=== PATIENT | female | born 1940 | race Caucasian/White ===

== ENCOUNTER 2017-08-17 15:13 | Inpatient (IN) ==
[2017-08-17 15:59] LABS: Basophils % 0.4 % (0.0-0.8); Eosinophils # 0.1 10*3/uL (0.0-0.87); Eosinophils % 1.5 % (0.00-10.9); Hematocrit 50.5 VOL% (35.7-47.0); Hemoglobin 17.6 GM/DL (12.0-16.0); Immature Granulocytes % 0.7 %; Immature Granulocytes Absolute 0.05 #; Lymphocytes # 1.4 10*3/uL (1.4-4.0); Lymphocytes % 19.2 % (21.3-54.2); Mean Corpuscular HGB Conc 34.9 GM/DL (32-36); Mean Corpuscular Hemoglobin 32 PG (27-34); Mean Corpuscular Volume 92.8 FL (87-102); Mean Platelet Volume 10.7 FL (9.6-12.0); Monocytes # 0.6 10*3/uL (0.11-0.8); Monocytes % 7.7 % (1.7-12.7); Neutrophils # 5.3 10*3/uL (1.4-7.4); Neutrophils % 70.5 % (38.7-73.9); Platelet Count 197 T/CUMM (130-400); Red Blood Count 5.44 MC/CUMM (3.8-5.5); Red Cell Distribution Width 12.5 % (9.3-17.3); White Blood Count 7.5 T/CUMM (4-12)
[2017-08-17] MEDS ORDERED: AMPICILLIN/SULBACTAM 3,000 MG in SODIUM CHLORIDE 0.9% 100 ML IV STA (15:59)
[2017-08-17] MEDS ORDERED: AMPICILLIN/SULBACTAM 3,000 MG VIAL ONE (16:04)
[2017-08-17 16:07] LABS: Apearance,Urine CLEAR (Clear); Bilirubin,Urine Negative (Negative); Blood, Urine Moderate mg/dL (Negative); Glucose,Urine (UA) Negative (Negative); Ketones,Urine Negative (Negative); Nitrite,Urine Negative (Negative); Protein,Urine Negative; RBC,Urine 1 /HPF (0-4); Urine Color Yellow (Yellow); Urine Specific Gravity 1.003 (1.001-1.035); Urine Urobilinogen < 2.0 EU/DL (0.2-1.0); WBC,Urine <1 /HPF (0-6)
[2017-08-17 16:23] LABS: Albumin 3.1 G/DL (3.4-5.0); Bilirubin,Total 0.9 MG/DL (0.2-1.0); Calcium 9.9 MG/DL (8.5-10.1); Osmolality,Calculated 269.1 MOS/KG (273-304); Potassium 3.8 MMOL/L (3.5-5.1); Total Protein 7.6 G/DL (6.4-8.3)
[2017-08-17] MEDS: SODIUM CHLORIDE 0.9% 1,000 ML IV SCH (20:21)
[2017-08-17] MEDS: metroNIDAZOLE INJ 500 MG in PREMIX 1 EACH IV SCH (20:23)
[2017-08-17] MEDS: LEVOFLOXACIN INJ 750 MG in PREMIX 1 EACH IV SCH (21:45)
[2017-08-17] MEDS ORDERED: KETOROLAC 30 MG/1 ML VIAL IV PRN (23:18)
[2017-08-18] MEDS: ONDANSETRON 4 MG/2 ML VIAL IV PRN ×2 (00:09→23:48)
[2017-08-18] MEDS: metroNIDAZOLE INJ 500 MG in PREMIX 1 EACH IV SCH ×4 (01:22→20:16)
[2017-08-18] MEDS ORDERED: HYDROmorphone 2 MG/1 ML VIAL IV ONE (01:29)
[2017-08-18 05:01] LABS: Basophils % 0.2 % (0.0-0.8); Eosinophils # 0.1 10*3/uL (0.0-0.87); Eosinophils % 1.4 % (0.00-10.9); Hematocrit 32.8 VOL% (35.7-47.0); Hemoglobin 11.2 GM/DL (12.0-16.0); Immature Granulocytes % 0.8 %; Immature Granulocytes Absolute 0.08 #; Lymphocytes # 1.8 10*3/uL (1.4-4.0); Lymphocytes % 17.9 % (21.3-54.2); Mean Corpuscular HGB Conc 34.1 GM/DL (32-36); Mean Corpuscular Hemoglobin 32 PG (27-34); Mean Corpuscular Volume 94.5 FL (87-102); Mean Platelet Volume 11.6 FL (9.6-12.0); Monocytes # 0.8 10*3/uL (0.11-0.8); Neutrophils % 71.7 % (38.7-73.9); Platelet Count 261 T/CUMM (130-400); Red Blood Count 3.47 MC/CUMM (3.8-5.5); Red Cell Distribution Width 12.6 % (9.3-17.3); White Blood Count 9.8 T/CUMM (4-12)
[2017-08-18 05:41] LABS: Calcium 9.4 MG/DL (8.5-10.1); Osmolality,Calculated 275.5 MOS/KG (273-304); Potassium 3.9 MMOL/L (3.5-5.1); Risk Ratio 3.97; Thyroid Stimulating Hormone 2.47 uIU/ml (0.358-3.74); VLDL CHOLESTEROL 18.2 MG/DL
[2017-08-18] MEDS: ASPIRIN EC 81 MG TABLET PO SCH (08:40)
[2017-08-18] MEDS: DOCUSATE SODIUM 100 MG CAPSULE PO SCH (08:40)
[2017-08-18] MEDS: PANTOPRAZOLE 40 MG TABLET PO SCH (08:40)
[2017-08-18] MEDS: FOLIC ACID 1 MG TABLET PO SCH (08:40)
[2017-08-18] MEDS: CYANOCOBALAMIN 500 MCG TABLET PO SCH (08:41)
[2017-08-18] MEDS: SODIUM CHLORIDE 0.9% 1,000 ML IV SCH ×2 (13:45→23:47)
[2017-08-18] MEDS: oxyCODONE/ACETAMINOPHEN 5-325 MG TABLET PO PRN ×2 (15:15→23:49)
[2017-08-18] MEDS: LEVOFLOXACIN INJ 750 MG in PREMIX 1 EACH IV SCH (20:18)
[2017-08-19] MEDS: metroNIDAZOLE INJ 500 MG in PREMIX 1 EACH IV SCH ×4 (01:27→20:14)
[2017-08-19 05:46] LABS: Basophils % 0.4 % (0.0-0.8); Eosinophils # 0.1 10*3/uL (0.0-0.87); Eosinophils % 1.6 % (0.00-10.9); Hematocrit 31.3 VOL% (35.7-47.0); Hemoglobin 10.5 GM/DL (12.0-16.0); Immature Granulocytes % 0.8 %; Immature Granulocytes Absolute 0.07 #; Lymphocytes # 1.6 10*3/uL (1.4-4.0); Mean Corpuscular HGB Conc 33.5 GM/DL (32-36); Mean Corpuscular Hemoglobin 32 PG (27-34); Mean Platelet Volume 11.3 FL (9.6-12.0); Monocytes # 0.7 10*3/uL (0.11-0.8); Monocytes % 7.7 % (1.7-12.7); Neutrophils % 70.5 % (38.7-73.9); Platelet Count 230 T/CUMM (130-400); Red Blood Count 3.26 MC/CUMM (3.8-5.5); Red Cell Distribution Width 12.7 % (9.3-17.3); White Blood Count 8.5 T/CUMM (4-12)
[2017-08-19] MEDS: oxyCODONE/ACETAMINOPHEN 5-325 MG TABLET PO PRN ×3 (05:53→16:52)
[2017-08-19] MEDS: SODIUM CHLORIDE 0.9% 1,000 ML IV SCH ×2 (05:53→19:54)
[2017-08-19 06:20] LABS: Osmolality,Calculated 275.5 MOS/KG (273-304); Potassium 4.4 MMOL/L (3.5-5.1)
[2017-08-19] MEDS: DOCUSATE SODIUM 100 MG CAPSULE PO SCH (08:53)
[2017-08-19] MEDS: ASPIRIN EC 81 MG TABLET PO SCH (08:53)
[2017-08-19] MEDS: FOLIC ACID 1 MG TABLET PO SCH (08:54)
[2017-08-19] MEDS: PANTOPRAZOLE 40 MG TABLET PO SCH (08:54)
[2017-08-19] MEDS: CYANOCOBALAMIN 500 MCG TABLET PO SCH (08:54)
[2017-08-19] MEDS: ONDANSETRON 4 MG/2 ML VIAL IV PRN (17:50)
[2017-08-19] MEDS: LEVOFLOXACIN INJ 750 MG in PREMIX 1 EACH IV SCH (22:16)
[2017-08-20] MEDS: oxyCODONE/ACETAMINOPHEN 5-325 MG TABLET PO PRN ×3 (00:15→20:55)
[2017-08-20] MEDS: ONDANSETRON 4 MG/2 ML VIAL IV PRN ×3 (00:16→17:26)
[2017-08-20] MEDS: metroNIDAZOLE INJ 500 MG in PREMIX 1 EACH IV SCH ×2 (01:29→09:19)
[2017-08-20] MEDS: SODIUM CHLORIDE 0.9% 1,000 ML IV SCH ×2 (02:05→14:25)
[2017-08-20 06:22] LABS: Basophils % 0.4 % (0.0-0.8); Eosinophils # 0.2 10*3/uL (0.0-0.87); Eosinophils % 2.8 % (0.00-10.9); Hematocrit 32.4 VOL% (35.7-47.0); Hemoglobin 10.7 GM/DL (12.0-16.0); Immature Granulocytes % 0.9 %; Immature Granulocytes Absolute 0.06 #; Lymphocytes # 1.6 10*3/uL (1.4-4.0); Lymphocytes % 23.3 % (21.3-54.2); Mean Corpuscular Hemoglobin 32 PG (27-34); Mean Corpuscular Volume 95.9 FL (87-102); Mean Platelet Volume 11.1 FL (9.6-12.0); Monocytes # 0.5 10*3/uL (0.11-0.8); Monocytes % 6.7 % (1.7-12.7); NRBC # 0.02 10*3/uL; Neutrophils # 4.5 10*3/uL (1.4-7.4); Neutrophils % 65.9 % (38.7-73.9); Platelet Count 226 T/CUMM (130-400); Red Blood Count 3.38 MC/CUMM (3.8-5.5); Red Cell Distribution Width 12.8 % (9.3-17.3); White Blood Count 6.8 T/CUMM (4-12)
[2017-08-20 06:44] LABS: Calcium 8.9 MG/DL (8.5-10.1); Magnesium 1.9 MG/DL (1.8-2.4); Osmolality,Calculated 276.4 MOS/KG (273-304); Potassium 4.1 MMOL/L (3.5-5.1)
[2017-08-20] MEDS: PANTOPRAZOLE 40 MG TABLET PO SCH (09:22)
[2017-08-20] MEDS: DOCUSATE SODIUM 100 MG CAPSULE PO SCH (09:22)
[2017-08-20] MEDS: ASPIRIN EC 81 MG TABLET PO SCH (09:22)
[2017-08-20] MEDS: FOLIC ACID 1 MG TABLET PO SCH (09:22)
[2017-08-20] MEDS: CYANOCOBALAMIN 500 MCG TABLET PO SCH (09:23)
[2017-08-20] MEDS ORDERED: MAGNESIUM HYDROXIDE SUSP 30 ML UDCUP PO ONE (13:06)
[2017-08-20] MEDS ORDERED: MAGNESIUM HYDROXIDE SUSP 30 ML UDCUP PO PRN (13:06)
[2017-08-20] MEDS: metroNIDAZOLE 500 MG TABLET PO SCH ×2 (17:26→20:48)
[2017-08-21] MEDS: metroNIDAZOLE 500 MG TABLET PO SCH ×4 (02:00→21:51)
[2017-08-21] MEDS: oxyCODONE/ACETAMINOPHEN 5-325 MG TABLET PO PRN ×2 (02:01→11:48)
[2017-08-21] MEDS: SODIUM CHLORIDE 0.9% 1,000 ML IV SCH ×2 (03:00→18:00)
[2017-08-21 03:12] LABS: Basophils % 0.4 % (0.0-0.8); Eosinophils # 0.2 10*3/uL (0.0-0.87); Eosinophils % 3.3 % (0.00-10.9); Hematocrit 30.8 VOL% (35.7-47.0); Hemoglobin 10.2 GM/DL (12.0-16.0); Immature Granulocytes % 0.7 %; Immature Granulocytes Absolute 0.05 #; Lymphocytes # 2.3 10*3/uL (1.4-4.0); Lymphocytes % 32.1 % (21.3-54.2); Mean Corpuscular HGB Conc 33.1 GM/DL (32-36); Mean Corpuscular Hemoglobin 32 PG (27-34); Mean Corpuscular Volume 95.7 FL (87-102); Mean Platelet Volume 11.3 FL (9.6-12.0); Monocytes # 0.5 10*3/uL (0.11-0.8); Monocytes % 7.5 % (1.7-12.7); Platelet Count 216 T/CUMM (130-400); Red Blood Count 3.22 MC/CUMM (3.8-5.5); Red Cell Distribution Width 12.9 % (9.3-17.3); White Blood Count 7.1 T/CUMM (4-12)
[2017-08-21 03:38] LABS: Calcium 8.8 MG/DL (8.5-10.1); Magnesium 1.9 MG/DL (1.8-2.4); Osmolality,Calculated 278.3 MOS/KG (273-304); Potassium 3.9 MMOL/L (3.5-5.1)
[2017-08-21] MEDS: DOCUSATE SODIUM 100 MG CAPSULE PO SCH (10:15)
[2017-08-21] MEDS: PANTOPRAZOLE 40 MG TABLET PO SCH (10:16)
[2017-08-21] MEDS: LEVOFLOXACIN 750 MG TABLET PO SCH (10:16)
[2017-08-21] MEDS: FOLIC ACID 1 MG TABLET PO SCH (10:16)
[2017-08-21] MEDS: ASPIRIN EC 81 MG TABLET PO SCH (10:16)
[2017-08-21] MEDS: CYANOCOBALAMIN 500 MCG TABLET PO SCH (10:17)
[2017-08-21] MEDS: ONDANSETRON 4 MG/2 ML VIAL IV PRN ×2 (13:19→17:28)
[2017-08-21] MEDS ORDERED: PROMETHAZINE 25 MG/1 ML VIAL IM ONE (19:10)
[2017-08-22] MEDS: SODIUM CHLORIDE 0.9% 1,000 ML IV SCH ×3 (04:07→19:40)
[2017-08-22] MEDS: metroNIDAZOLE 500 MG TABLET PO SCH ×4 (04:09→20:27)
[2017-08-22] MEDS: DOCUSATE SODIUM 100 MG CAPSULE PO SCH (08:52)
[2017-08-22] MEDS: LEVOFLOXACIN 750 MG TABLET PO SCH (08:52)
[2017-08-22] MEDS: PANTOPRAZOLE 40 MG TABLET PO SCH (08:53)
[2017-08-22] MEDS: CYANOCOBALAMIN 500 MCG TABLET PO SCH (08:53)
[2017-08-22] MEDS: ASPIRIN EC 81 MG TABLET PO SCH (08:53)
[2017-08-22] MEDS: FOLIC ACID 1 MG TABLET PO SCH (08:53)
[2017-08-22] MEDS: HYDROCORTISONE 25 MG SUPP RECTAL SCH ×2 (17:32→20:27)
[2017-08-23 03:53] LABS: Basophils # 0.1 10*3/uL (0.0-0.2); Basophils % 0.9 % (0.0-0.8); Eosinophils # 0.2 10*3/uL (0.0-0.87); Eosinophils % 3.6 % (0.00-10.9); Hematocrit 32.8 VOL% (35.7-47.0); Hemoglobin 10.9 GM/DL (12.0-16.0); Immature Granulocytes % 1.2 %; Immature Granulocytes Absolute 0.07 #; Lymphocytes # 1.9 10*3/uL (1.4-4.0); Lymphocytes % 32.2 % (21.3-54.2); Mean Corpuscular HGB Conc 33.2 GM/DL (32-36); Mean Corpuscular Hemoglobin 32 PG (27-34); Mean Corpuscular Volume 96.2 FL (87-102); Mean Platelet Volume 11.1 FL (9.6-12.0); Monocytes # 0.4 10*3/uL (0.11-0.8); Monocytes % 6.5 % (1.7-12.7); Neutrophils # 3.2 10*3/uL (1.4-7.4); Neutrophils % 55.6 % (38.7-73.9); Platelet Count 207 T/CUMM (130-400); Red Blood Count 3.41 MC/CUMM (3.8-5.5); Red Cell Distribution Width 13.1 % (9.3-17.3); White Blood Count 5.8 T/CUMM (4-12)
[2017-08-23] MEDS: metroNIDAZOLE 500 MG TABLET PO SCH ×2 (03:59→08:31)
[2017-08-23 05:20] LABS: Albumin 2.1 G/DL (3.4-5.0); Phosphorous 2.3 MG/DL (2.5-4.9); Potassium 4.6 MMOL/L (3.5-5.1)
[2017-08-23 06:05] LABS: Sedimentation Rate-Westergren 65 MM/HR (0-30)
[2017-08-23] MEDS: FOLIC ACID 1 MG TABLET PO SCH (08:31)
[2017-08-23] MEDS: HYDROCORTISONE 25 MG SUPP RECTAL SCH (08:31)
[2017-08-23] MEDS: CYANOCOBALAMIN 500 MCG TABLET PO SCH (08:31)
[2017-08-23] MEDS: ASPIRIN EC 81 MG TABLET PO SCH (08:31)
[2017-08-23] MEDS: LEVOFLOXACIN 750 MG TABLET PO SCH (08:31)
[2017-08-23] MEDS: DOCUSATE SODIUM 100 MG CAPSULE PO SCH (08:31)
[2017-08-23] MEDS: PANTOPRAZOLE 40 MG TABLET PO SCH (08:31)
[2017-08-23] MEDS: SODIUM CHLORIDE 0.9% 1,000 ML IV SCH (08:32)
[2017-08-23 11:41] VITALS: BP 144/71
== END 2017-08-23 14:30 | disposition home or self-care (01) | DRG 392 ==
LOC: N.ED 15:13 → SUATTDRO 16:51 → N.EDINP 16:51 → N.3E 19:09
PROVIDERS: ADMIT Internal Medicine; ATTEND Pediatrics

== ENCOUNTER 2017-12-28 15:43 | Inpatient (IN) ==
[2017-12-28] MEDS: cefTRIAXone 1,000 MG in SYRINGE 1 EACH IV SCH (18:08)
[2017-12-28] MEDS: SODIUM CHLORIDE 0.9% 1,000 ML IV SCH (18:15)
[2017-12-28] MEDS ORDERED: METHOCARBAMOL 500 MG TABLET PO PRN (18:30)
[2017-12-28] MEDS: metroNIDAZOLE INJ 500 MG in PREMIX 1 EACH IV SCH (19:33)
[2017-12-28] MEDS: GABAPENTIN 300 MG CAPSULE PO SCH ×2 (20:44→20:48)
[2017-12-28] MEDS: traMADol 50 MG TABLET PO PRN (20:50)
[2017-12-29] MEDS: metroNIDAZOLE INJ 500 MG in PREMIX 1 EACH IV SCH ×3 (04:41→20:40)
[2017-12-29] MEDS: SODIUM CHLORIDE 0.9% 1,000 ML IV SCH ×2 (04:41→17:12)
[2017-12-29] MEDS: ASPIRIN EC 81 MG TABLET PO SCH (09:44)
[2017-12-29] MEDS: NAPROXEN 250 MG TABLET PO SCH (09:44)
[2017-12-29] MEDS: hydrOXYzine HCL 10 MG TABLET PO SCH (09:44)
[2017-12-29] MEDS: DOCUSATE SODIUM 100 MG CAPSULE PO SCH (09:44)
[2017-12-29 10:07] LABS: Basophils % 0.4 % (0.0-0.8); Eosinophils # 0.2 10*3/uL (0.0-0.87); Eosinophils % 1.8 % (0.00-10.9); Hematocrit 34.9 VOL% (35.7-47.0); Hemoglobin 11.8 GM/DL (12.0-16.0); Immature Granulocytes % 0.6 %; Immature Granulocytes Absolute 0.05 #; Lymphocytes # 1.8 10*3/uL (1.4-4.0); Lymphocytes % 21.2 % (21.3-54.2); Mean Corpuscular HGB Conc 33.8 GM/DL (32-36); Mean Corpuscular Hemoglobin 32 PG (27-34); Mean Corpuscular Volume 94.3 FL (87-102); Mean Platelet Volume 10.2 FL (9.6-12.0); Monocytes # 0.7 10*3/uL (0.11-0.8); Monocytes % 8.4 % (1.7-12.7); Neutrophils # 5.7 10*3/uL (1.4-7.4); Neutrophils % 67.6 % (38.7-73.9); Platelet Count 284 T/CUMM (130-400); Red Cell Distribution Width 13.9 % (9.3-17.3); White Blood Count 8.4 T/CUMM (4-12)
[2017-12-29 10:38] LABS: Calcium 9.4 MG/DL (8.5-10.1); Osmolality,Calculated 273.5 MOS/KG (273-304); Potassium 3.7 MMOL/L (3.5-5.1)
[2017-12-29] MEDS: traMADol 50 MG TABLET PO PRN (12:31)
[2017-12-29] MEDS: cefTRIAXone 1,000 MG in SYRINGE 1 EACH IV SCH (17:14)
[2017-12-29] MEDS: GABAPENTIN 300 MG CAPSULE PO SCH (20:44)
[2017-12-29] MEDS: ONDANSETRON 4 MG TABLET PO PRN (20:56)
[2017-12-30] MEDS: SODIUM CHLORIDE 0.9% 1,000 ML IV SCH ×3 (04:36→16:50)
[2017-12-30] MEDS: metroNIDAZOLE INJ 500 MG in PREMIX 1 EACH IV SCH ×3 (04:36→20:35)
[2017-12-30] MEDS: ASPIRIN EC 81 MG TABLET PO SCH (10:07)
[2017-12-30] MEDS: DOCUSATE SODIUM 100 MG CAPSULE PO SCH (10:08)
[2017-12-30] MEDS: traMADol 50 MG TABLET PO PRN (15:20)
[2017-12-30] MEDS: ONDANSETRON 4 MG TABLET PO PRN (17:45)
[2017-12-30] MEDS: cefTRIAXone 1,000 MG in SYRINGE 1 EACH IV SCH (17:46)
[2017-12-30] MEDS: GABAPENTIN 300 MG CAPSULE PO SCH (20:33)
[2017-12-31] MEDS: SODIUM CHLORIDE 0.9% 1,000 ML IV SCH ×2 (02:51→14:50)
[2017-12-31] MEDS: metroNIDAZOLE INJ 500 MG in PREMIX 1 EACH IV SCH ×2 (04:36→12:44)
[2017-12-31 05:48] LABS: Basophils # 0.1 10*3/uL (0.0-0.2); Basophils % 0.9 % (0.0-0.8); Eosinophils # 0.2 10*3/uL (0.0-0.87); Eosinophils % 3.2 % (0.00-10.9); Hematocrit 31.4 VOL% (35.7-47.0); Hemoglobin 10.5 GM/DL (12.0-16.0); Immature Granulocytes % 0.4 %; Immature Granulocytes Absolute 0.03 #; Lymphocytes # 1.6 10*3/uL (1.4-4.0); Lymphocytes % 23.2 % (21.3-54.2); Mean Corpuscular HGB Conc 33.4 GM/DL (32-36); Mean Corpuscular Hemoglobin 31 PG (27-34); Mean Corpuscular Volume 93.5 FL (87-102); Monocytes # 0.5 10*3/uL (0.11-0.8); Monocytes % 7.5 % (1.7-12.7); Neutrophils # 4.5 10*3/uL (1.4-7.4); Neutrophils % 64.8 % (38.7-73.9); Platelet Count 269 T/CUMM (130-400); Red Blood Count 3.36 MC/CUMM (3.8-5.5); Red Cell Distribution Width 13.7 % (9.3-17.3)
[2017-12-31 06:46] LABS: Calcium 9.1 MG/DL (8.5-10.1); Osmolality,Calculated 274.4 MOS/KG (273-304); Potassium 3.6 MMOL/L (3.5-5.1)
[2017-12-31] MEDS: ONDANSETRON 4 MG TABLET PO PRN ×3 (07:28→20:00)
[2017-12-31] MEDS: hydrOXYzine HCL 10 MG TABLET PO SCH (08:49)
[2017-12-31] MEDS: ASPIRIN EC 81 MG TABLET PO SCH (08:49)
[2017-12-31] MEDS: NAPROXEN 250 MG TABLET PO SCH (08:50)
[2017-12-31] MEDS: DOCUSATE SODIUM 100 MG CAPSULE PO SCH (08:50)
[2017-12-31] MEDS: POLYETHYLENE GLYCOL POWDER 17 GM PACK PO SCH (12:45)
[2017-12-31] MEDS: PIPERACILLIN/TAZOBACTAM 3,375 MG in SODIUM CHLORIDE 0.9% 100 ML IV SCH (17:32)
[2017-12-31] MEDS: GABAPENTIN 300 MG CAPSULE PO SCH (21:30)
[2018-01-01] MEDS: PIPERACILLIN/TAZOBACTAM 3,375 MG in SODIUM CHLORIDE 0.9% 100 ML IV SCH ×3 (00:48→17:34)
[2018-01-01] MEDS: SODIUM CHLORIDE 0.9% 1,000 ML IV SCH ×2 (02:43→10:44)
[2018-01-01] MEDS: ONDANSETRON 4 MG TABLET PO PRN ×2 (04:49→10:43)
[2018-01-01] MEDS: DOCUSATE SODIUM 100 MG CAPSULE PO SCH (08:53)
[2018-01-01] MEDS: ASPIRIN EC 81 MG TABLET PO SCH (08:53)
[2018-01-01] MEDS: POLYETHYLENE GLYCOL POWDER 17 GM PACK PO SCH (08:55)
[2018-01-01] MEDS: traMADol 50 MG TABLET PO PRN (13:08)
[2018-01-01] MEDS: PROMETHAZINE 25 MG TABLET PO PRN ×2 (13:29→19:06)
[2018-01-01] MEDS: GABAPENTIN 300 MG CAPSULE PO SCH (21:44)
[2018-01-02] MEDS: SODIUM CHLORIDE 0.9% 1,000 ML IV SCH ×3 (00:31→07:28)
[2018-01-02] MEDS: PIPERACILLIN/TAZOBACTAM 3,375 MG in SODIUM CHLORIDE 0.9% 100 ML IV SCH ×3 (01:45→18:57)
[2018-01-02] MEDS: POLYETHYLENE GLYCOL POWDER 17 GM PACK PO SCH (08:46)
[2018-01-02] MEDS: ASPIRIN EC 81 MG TABLET PO SCH (09:16)
[2018-01-02] MEDS: DOCUSATE SODIUM 100 MG CAPSULE PO SCH (09:16)
[2018-01-02] MEDS: traMADol 50 MG TABLET PO PRN (09:16)
[2018-01-02] MEDS: PROMETHAZINE 25 MG TABLET PO PRN ×3 (09:40→18:56)
[2018-01-02] MEDS: GABAPENTIN 300 MG CAPSULE PO SCH (21:22)
[2018-01-03] MEDS: SODIUM CHLORIDE 0.9% 1,000 ML IV SCH ×2 (01:42→06:07)
[2018-01-03] MEDS: PIPERACILLIN/TAZOBACTAM 3,375 MG in SODIUM CHLORIDE 0.9% 100 ML IV SCH ×3 (01:47→17:44)
[2018-01-03] MEDS: traMADol 50 MG TABLET PO PRN ×4 (01:47→23:23)
[2018-01-03 05:49] LABS: Basophils % 0.3 % (0.0-0.8); Eosinophils # 0.2 10*3/uL (0.0-0.87); Eosinophils % 1.7 % (0.00-10.9); Hematocrit 32.3 VOL% (35.7-47.0); Hemoglobin 11.1 GM/DL (12.0-16.0); Immature Granulocytes % 0.5 %; Immature Granulocytes Absolute 0.05 #; Lymphocytes # 1.8 10*3/uL (1.4-4.0); Lymphocytes % 17.6 % (21.3-54.2); Mean Corpuscular HGB Conc 34.4 GM/DL (32-36); Mean Corpuscular Hemoglobin 32 PG (27-34); Mean Corpuscular Volume 91.8 FL (87-102); Mean Platelet Volume 10.9 FL (9.6-12.0); Monocytes # 0.9 10*3/uL (0.11-0.8); Monocytes % 8.9 % (1.7-12.7); Neutrophils # 7.2 10*3/uL (1.4-7.4); Platelet Count 262 T/CUMM (130-400); Red Blood Count 3.52 MC/CUMM (3.8-5.5); Red Cell Distribution Width 14.1 % (9.3-17.3); White Blood Count 10.1 T/CUMM (4-12)
[2018-01-03 06:20] LABS: Alanine Aminotransferase < 6 U/L (13-56); Albumin 2.2 G/DL (3.4-5.0); Alkaline Phosphatase 61 U/L (45-117); Aspartate Amino Transferase 9 U/L (0-37); Blood Urea Nitrogen 3 MG/DL (7-18); Calcium 8.9 MG/DL (8.5-10.1); Glucose 77 MG/DL (74-106); Osmolality,Calculated 276.3 MOS/KG (273-304); Potassium 3.1 MMOL/L (3.5-5.1); Sodium 141 MMOL/L (136-145); Total Protein 5.1 G/DL (6.4-8.3)
[2018-01-03] MEDS: DOCUSATE SODIUM 100 MG CAPSULE PO SCH (08:09)
[2018-01-03] MEDS: hydrOXYzine HCL 10 MG TABLET PO SCH ×2 (08:09→08:15)
[2018-01-03] MEDS: ASPIRIN EC 81 MG TABLET PO SCH (08:09)
[2018-01-03] MEDS: PROMETHAZINE 25 MG TABLET PO PRN ×3 (08:09→21:59)
[2018-01-03] MEDS: NAPROXEN 250 MG TABLET PO SCH ×2 (08:10→08:14)
[2018-01-03] MEDS: POLYETHYLENE GLYCOL POWDER 17 GM PACK PO SCH (09:39)
[2018-01-03] MEDS: GABAPENTIN 300 MG CAPSULE PO SCH (21:55)
[2018-01-04] MEDS: SODIUM CHLORIDE 0.9% 1,000 ML IV SCH ×4 (01:12→23:13)
[2018-01-04] MEDS: PIPERACILLIN/TAZOBACTAM 3,375 MG in SODIUM CHLORIDE 0.9% 100 ML IV SCH ×3 (01:12→19:16)
[2018-01-04] MEDS: traMADol 50 MG TABLET PO PRN (04:54)
[2018-01-04] MEDS: PROMETHAZINE 25 MG TABLET PO PRN (05:53)
[2018-01-04] MEDS ORDERED: ERTAPENEM 1,000 MG in SODIUM CHLORIDE 0.9% 100 ML IV ONE (06:00)
[2018-01-04 06:09] LABS: Basophils % 0.3 % (0.0-0.8); Eosinophils # 0.2 10*3/uL (0.0-0.87); Eosinophils % 1.7 % (0.00-10.9); Hematocrit 39.8 VOL% (35.7-47.0); Hemoglobin 13.6 GM/DL (12.0-16.0); Immature Granulocytes % 0.4 %; Immature Granulocytes Absolute 0.06 #; Lymphocytes # 3.3 10*3/uL (1.4-4.0); Lymphocytes % 24.5 % (21.3-54.2); Mean Corpuscular HGB Conc 34.2 GM/DL (32-36); Mean Corpuscular Hemoglobin 31 PG (27-34); Mean Corpuscular Volume 91.3 FL (87-102); Monocytes % 7.6 % (1.7-12.7); Neutrophils # 8.8 10*3/uL (1.4-7.4); Neutrophils % 65.5 % (38.7-73.9); Platelet Count 328 T/CUMM (130-400); Red Blood Count 4.36 MC/CUMM (3.8-5.5); Red Cell Distribution Width 14.2 % (9.3-17.3); White Blood Count 13.5 T/CUMM (4-12)
[2018-01-04 06:45] LABS: Osmolality,Calculated 272.5 MOS/KG (273-304); Potassium 3.1 MMOL/L (3.5-5.1)
[2018-01-04] MEDS: POTASSIUM CHLORIDE RIDER 10 MEQ in PREMIX 1 EACH IV PRN ×2 (07:11→09:20)
[2018-01-04] MEDS ORDERED: ALVIMOPAN 12 MG CAPSULE ONE (08:58)
[2018-01-04] MEDS: ASPIRIN EC 81 MG TABLET PO SCH (09:02)
[2018-01-04] MEDS: DOCUSATE SODIUM 100 MG CAPSULE PO SCH (09:03)
[2018-01-04] MEDS: POLYETHYLENE GLYCOL POWDER 17 GM PACK PO SCH (09:03)
[2018-01-04] MEDS: ALVIMOPAN 12 MG CAPSULE PO SCH ×3 (09:03→21:06)
[2018-01-04] MEDS ORDERED: fentaNYL 100 MCG/2 ML VIAL ONE (15:09)
[2018-01-04] MEDS ORDERED: SEVOFLURANE 1 UNIT/15 MINUTE INH ONE (15:09)
[2018-01-04] MEDS ORDERED: HYDROmorphone 2 MG/1 ML VIAL ONE (15:11)
[2018-01-04] MEDS ORDERED: PROPOFOL 200 MG/20 ML VIAL IV ONE (15:11)
[2018-01-04] MEDS ORDERED: ALBUMIN 5% 12.5 GM/250 ML VIAL IV ONE (15:11)
[2018-01-04] MEDS ORDERED: DEXAMETHASONE 10 MG/1 ML VIAL ONE (15:12)
[2018-01-04] MEDS ORDERED: PHENYLEPHRINE 10 MG/1 ML VIAL IV ONE (15:12)
[2018-01-04] MEDS ORDERED: PHENYLEPHRINE 1 MG/10 ML SYRINGE IV ONE (15:12)
[2018-01-04] MEDS ORDERED: NEOSTIGMINE 10 MG/10 ML VIAL ONE (15:12)
[2018-01-04] MEDS ORDERED: GLYCOPYRROLATE 0.4 MG/2 ML VIAL ONE (15:12)
[2018-01-04] MEDS ORDERED: LACTATED RINGERS 1,000 ML IV ONE (15:12)
[2018-01-04] MEDS ORDERED: ONDANSETRON 4 MG/2 ML VIAL ONE ×2 (15:13→15:49)
[2018-01-04] MEDS ORDERED: ONDANSETRON 4 MG/2 ML VIAL IV PRN (15:48)
[2018-01-04] MEDS ORDERED: MORPHINE 10 MG/1 ML VIAL ONE (15:53)
[2018-01-04] MEDS: MORPHINE 10 MG/1 ML VIAL IV PRN ×3 (15:55→16:07)
[2018-01-04] MEDS ORDERED: MORPHINE 2 MG/1 ML SYRINGE IV PRN (16:57)
[2018-01-04] MEDS ORDERED: oxyCODONE/ACETAMINOPHEN 5-325 MG TABLET PO PRN (17:10)
[2018-01-04 18:17] LABS: Basophils % 0.1 % (0.0-0.8); Hematocrit 32.9 VOL% (35.7-47.0); Hemoglobin 10.6 GM/DL (12.0-16.0); Immature Granulocytes % 0.2 %; Immature Granulocytes Absolute 0.02 #; Lymphocytes # 0.7 10*3/uL (1.4-4.0); Lymphocytes % 7.3 % (21.3-54.2); Mean Corpuscular HGB Conc 32.2 GM/DL (32-36); Mean Corpuscular Hemoglobin 31 PG (27-34); Mean Corpuscular Volume 97.1 FL (87-102); Mean Platelet Volume 11.2 FL (9.6-12.0); Monocytes # 0.9 10*3/uL (0.11-0.8); Monocytes % 8.9 % (1.7-12.7); Neutrophils # 8.5 10*3/uL (1.4-7.4); Neutrophils % 83.5 % (38.7-73.9); Platelet Count 259 T/CUMM (130-400); Red Blood Count 3.39 MC/CUMM (3.8-5.5); Red Cell Distribution Width 14.5 % (9.3-17.3); White Blood Count 10.1 T/CUMM (4-12)
[2018-01-04] MEDS: LACTATED RINGERS 1,000 ML IV SCH (18:34)
[2018-01-04 18:36] LABS: Calcium 9.4 MG/DL (8.5-10.1); Osmolality,Calculated 272.7 MOS/KG (273-304)
[2018-01-04] MEDS: oxyCODONE/ACETAMINOPHEN 5-325 MG TABLET PO PRN (21:05)
[2018-01-04] MEDS: GABAPENTIN 300 MG CAPSULE PO SCH (21:06)
[2018-01-04] MEDS: VERAPAMIL HCL 100 MG PO SCH (21:07)
[2018-01-05] MEDS: PIPERACILLIN/TAZOBACTAM 3,375 MG in SODIUM CHLORIDE 0.9% 100 ML IV SCH ×3 (00:35→17:04)
[2018-01-05] MEDS: LACTATED RINGERS 1,000 ML IV SCH ×3 (00:35→23:05)
[2018-01-05 04:53] LABS: Basophils % 0.1 % (0.0-0.8); Hematocrit 26.7 VOL% (35.7-47.0); Hemoglobin 8.6 GM/DL (12.0-16.0); Immature Granulocytes % 0.2 %; Immature Granulocytes Absolute 0.02 #; Lymphocytes # 1.1 10*3/uL (1.4-4.0); Lymphocytes % 12.4 % (21.3-54.2); Mean Corpuscular HGB Conc 32.2 GM/DL (32-36); Mean Corpuscular Hemoglobin 31 PG (27-34); Mean Corpuscular Volume 95.7 FL (87-102); Mean Platelet Volume 11.4 FL (9.6-12.0); Monocytes # 0.7 10*3/uL (0.11-0.8); Monocytes % 8.2 % (1.7-12.7); Neutrophils % 79.1 % (38.7-73.9); Platelet Count 225 T/CUMM (130-400); Red Blood Count 2.79 MC/CUMM (3.8-5.5); Red Cell Distribution Width 14.5 % (9.3-17.3); White Blood Count 8.8 T/CUMM (4-12)
[2018-01-05 05:25] LABS: Band Neutrophils 6 % (0-10); Eosinophils 1 % (0-10); Giant Platelets Few; Hypochromasia 1+; Lymphocytes 11 % (20-55); Ovalocytes Slight; Platelet Estimate Adequate; Segmented Neutrophils 77 % (50-85); Total Cells Counted 100
[2018-01-05 05:26] LABS: Calcium 9.1 MG/DL (8.5-10.1); Osmolality,Calculated 279.3 MOS/KG (273-304); Potassium 3.7 MMOL/L (3.5-5.1)
[2018-01-05] MEDS ORDERED: MAGNESIUM SULF RIDER 2 GM in PREMIX 1 EACH IV PRN (06:43)
[2018-01-05] MEDS ORDERED: MAGNESIUM SULF RIDER 4 GM in PREMIX 1 EACH IV PRN (06:43)
[2018-01-05] MEDS: SODIUM CHLORIDE 0.9% 1,000 ML IV SCH (06:44)
[2018-01-05] MEDS ORDERED: ALBUMIN 5% 25 GM in PREMIX 1 EACH IV ONE (07:47)
[2018-01-05] MEDS: DOCUSATE SODIUM 100 MG CAPSULE PO SCH (09:28)
[2018-01-05] MEDS: ALVIMOPAN 12 MG CAPSULE PO SCH ×2 (09:28→21:19)
[2018-01-05] MEDS: hydrOXYzine HCL 10 MG TABLET PO SCH (09:28)
[2018-01-05] MEDS: ASPIRIN EC 81 MG TABLET PO SCH (09:28)
[2018-01-05] MEDS: NAPROXEN 250 MG TABLET PO SCH (09:29)
[2018-01-05 12:28] LABS: Hemoglobin 8.9 GM/DL (12.0-16.0)
[2018-01-05] MEDS: oxyCODONE/ACETAMINOPHEN 5-325 MG TABLET PO PRN ×2 (13:10→21:15)
[2018-01-05] MEDS ORDERED: LACTATED RINGERS 1,000 ML IV ONE (16:13)
[2018-01-05] MEDS: GABAPENTIN 300 MG CAPSULE PO SCH (21:19)
[2018-01-05] MEDS: VERAPAMIL HCL 100 MG PO SCH (21:19)
[2018-01-06] MEDS: PIPERACILLIN/TAZOBACTAM 3,375 MG in SODIUM CHLORIDE 0.9% 100 ML IV SCH (00:46)
[2018-01-06] MEDS: oxyCODONE/ACETAMINOPHEN 5-325 MG TABLET PO PRN ×2 (03:40→15:43)
[2018-01-06 05:14] LABS: Basophils % 0.2 % (0.0-0.8); Eosinophils # 0.1 10*3/uL (0.0-0.87); Eosinophils % 1.1 % (0.00-10.9); Hematocrit 25.5 VOL% (35.7-47.0); Hemoglobin 8.5 GM/DL (12.0-16.0); Immature Granulocytes % 0.9 %; Lymphocytes # 0.7 10*3/uL (1.4-4.0); Lymphocytes % 6.6 % (21.3-54.2); Mean Corpuscular HGB Conc 33.3 GM/DL (32-36); Mean Corpuscular Hemoglobin 31 PG (27-34); Mean Corpuscular Volume 94.1 FL (87-102); Mean Platelet Volume 11.8 FL (9.6-12.0); Monocytes # 0.8 10*3/uL (0.11-0.8); Monocytes % 7.5 % (1.7-12.7); Neutrophils # 9.1 10*3/uL (1.4-7.4); Neutrophils % 83.7 % (38.7-73.9); Platelet Count 206 T/CUMM (130-400); Red Blood Count 2.71 MC/CUMM (3.8-5.5); Red Cell Distribution Width 14.8 % (9.3-17.3); White Blood Count 10.8 T/CUMM (4-12)
[2018-01-06 05:46] LABS: Calcium 8.8 MG/DL (8.5-10.1); Osmolality,Calculated 275.4 MOS/KG (273-304); Potassium 3.4 MMOL/L (3.5-5.1)
[2018-01-06] MEDS: PROMETHAZINE 25 MG TABLET PO PRN (07:19)
[2018-01-06] MEDS ORDERED: DEXTROSE 50% 25 GM/50 ML VIAL IV PRN (09:04)
[2018-01-06] MEDS ORDERED: GLUCAGON 1 MG VIAL IM PRN (09:04)
[2018-01-06] MEDS: KETOROLAC 15 MG/1 ML VIAL IV SCH ×3 (09:43→21:22)
[2018-01-06] MEDS: ALVIMOPAN 12 MG CAPSULE PO SCH ×2 (09:43→21:21)
[2018-01-06] MEDS: DOCUSATE SODIUM 100 MG CAPSULE PO SCH (09:43)
[2018-01-06] MEDS: ASPIRIN EC 81 MG TABLET PO SCH (09:43)
[2018-01-06] MEDS: ENOXAPARIN 40 MG/0.4 ML SYRINGE SUBCUT SCH (09:46)
[2018-01-06] MEDS: POTASSIUM CHLORIDE RIDER 10 MEQ in PREMIX 1 EACH IV PRN ×3 (11:01→15:56)
[2018-01-06] MEDS: INSULIN REGULAR 100 UNIT/ML SUBCUT SCH ×2 (14:23→18:49)
[2018-01-06] MEDS: ONDANSETRON 4 MG TABLET PO PRN (15:42)
[2018-01-06] MEDS: FAT EMULSION 20% 250 ML IV SCH (17:57)
[2018-01-06] MEDS: MULTIVITAMIN INJ 10 ML, TRACE ELEMENTS (5) 1 ML in AMINO ACIDS/DEXT/LYTES 4.25-5% 2,000 ML IV SCH (17:58)
[2018-01-06] MEDS: LACTATED RINGERS 1,000 ML IV SCH (18:48)
[2018-01-06] MEDS: CEFEPIME 2,000 MG in SYRINGE 1 EACH IV SCH (19:23)
[2018-01-06] MEDS: GABAPENTIN 300 MG CAPSULE PO SCH (21:29)
[2018-01-06] MEDS: VERAPAMIL HCL 100 MG PO SCH (21:29)
[2018-01-07] MEDS: INSULIN REGULAR 100 UNIT/ML SUBCUT SCH ×4 (00:08→18:08)
[2018-01-07] MEDS: LACTATED RINGERS 1,000 ML IV SCH ×3 (02:41→17:20)
[2018-01-07] MEDS: CEFEPIME 2,000 MG in SYRINGE 1 EACH IV SCH ×3 (02:41→18:45)
[2018-01-07] MEDS: KETOROLAC 15 MG/1 ML VIAL IV SCH ×4 (03:44→21:25)
[2018-01-07 05:05] LABS: Basophils % 0.1 % (0.0-0.8); Eosinophils # 0.2 10*3/uL (0.0-0.87); Eosinophils % 1.6 % (0.00-10.9); Hematocrit 21.7 VOL% (35.7-47.0); Hemoglobin 7.3 GM/DL (12.0-16.0); Lymphocytes # 0.8 10*3/uL (1.4-4.0); Mean Corpuscular HGB Conc 33.6 GM/DL (32-36); Mean Corpuscular Hemoglobin 31 PG (27-34); Mean Corpuscular Volume 93.1 FL (87-102); Monocytes # 0.5 10*3/uL (0.11-0.8); Monocytes % 5.5 % (1.7-12.7); Neutrophils # 8.2 10*3/uL (1.4-7.4); Neutrophils % 83.8 % (38.7-73.9); Platelet Count 209 T/CUMM (130-400); Red Blood Count 2.33 MC/CUMM (3.8-5.5); Red Cell Distribution Width 14.8 % (9.3-17.3); White Blood Count 9.8 T/CUMM (4-12)
[2018-01-07 05:50] LABS: Calcium 8.7 MG/DL (8.5-10.1); Osmolality,Calculated 280.4 MOS/KG (273-304); Potassium 3.5 MMOL/L (3.5-5.1); Prealbumin 3.6 MG/DL (20-40)
[2018-01-07 06:13] LABS: Band Neutrophils 1 % (0-10); Lymphocytes 15 % (20-55); Macrocytosis 1+; Platelet Estimate Normal; Segmented Neutrophils 80 % (50-85); Total Cells Counted 100
[2018-01-07] MEDS: oxyCODONE/ACETAMINOPHEN 5-325 MG TABLET PO PRN ×2 (07:38→19:05)
[2018-01-07 09:18] LABS: Apearance,Urine CLEAR (Clear); Bilirubin,Urine Negative (Negative); Blood, Urine Negative (Negative); Glucose,Urine (UA) Negative (Negative); Ketones,Urine Negative (Negative); Nitrite,Urine Negative (Negative); Protein,Urine Negative; RBC,Urine <1 /HPF (0-4); Squamous Epithelial Cell,Urine Occasional /HPF (0-10); Urine Color Yellow (Yellow); Urine Specific Gravity 1.009 (1.001-1.035); Urine Urobilinogen < 2.0 EU/DL (0.2-1.0); WBC,Urine 2 /HPF (0-6)
[2018-01-07] MEDS: hydrOXYzine HCL 10 MG TABLET PO SCH (10:02)
[2018-01-07] MEDS: ASPIRIN EC 81 MG TABLET PO SCH (10:05)
[2018-01-07] MEDS: ALVIMOPAN 12 MG CAPSULE PO SCH ×2 (10:05→21:24)
[2018-01-07] MEDS: ENOXAPARIN 40 MG/0.4 ML SYRINGE SUBCUT SCH (10:06)
[2018-01-07] MEDS: DOCUSATE SODIUM 100 MG CAPSULE PO SCH (10:07)
[2018-01-07 12:45] LABS: Hemoglobin 7.7 GM/DL (12.0-16.0)
[2018-01-07] MEDS: FAT EMULSION 20% 250 ML IV SCH (14:58)
[2018-01-07] MEDS: MULTIVITAMIN INJ 10 ML, TRACE ELEMENTS (5) 1 ML in AMINO ACIDS/DEXT/LYTES 4.25-5% 2,000 ML IV SCH (17:20)
[2018-01-07] MEDS: GABAPENTIN 300 MG CAPSULE PO SCH (21:25)
[2018-01-07] MEDS: VERAPAMIL HCL 100 MG PO SCH (21:25)
[2018-01-08] MEDS: oxyCODONE/ACETAMINOPHEN 5-325 MG TABLET PO PRN (00:31)
[2018-01-08] MEDS: INSULIN REGULAR 100 UNIT/ML SUBCUT SCH ×4 (01:20→18:34)
[2018-01-08] MEDS: CEFEPIME 2,000 MG in SYRINGE 1 EACH IV SCH ×3 (02:18→17:31)
[2018-01-08] MEDS: LACTATED RINGERS 1,000 ML IV SCH ×4 (03:28→18:34)
[2018-01-08] MEDS: KETOROLAC 15 MG/1 ML VIAL IV SCH ×4 (03:29→20:30)
[2018-01-08 05:13] LABS: Basophils % 0.2 % (0.0-0.8); Eosinophils # 0.4 10*3/uL (0.0-0.87); Eosinophils % 4.8 % (0.00-10.9); Hematocrit 22.8 VOL% (35.7-47.0); Hemoglobin 7.5 GM/DL (12.0-16.0); Immature Granulocytes Absolute 0.17 #; Lymphocytes # 1.1 10*3/uL (1.4-4.0); Lymphocytes % 12.5 % (21.3-54.2); Mean Corpuscular HGB Conc 32.9 GM/DL (32-36); Mean Corpuscular Hemoglobin 31 PG (27-34); Mean Corpuscular Volume 93.8 FL (87-102); Monocytes # 0.7 10*3/uL (0.11-0.8); Monocytes % 8.2 % (1.7-12.7); Neutrophils # 6.3 10*3/uL (1.4-7.4); Neutrophils % 72.3 % (38.7-73.9); Platelet Count 235 T/CUMM (130-400); Red Blood Count 2.43 MC/CUMM (3.8-5.5); Red Cell Distribution Width 14.8 % (9.3-17.3); White Blood Count 8.7 T/CUMM (4-12)
[2018-01-08 05:40] LABS: Calcium 8.4 MG/DL (8.5-10.1); Osmolality,Calculated 279.5 MOS/KG (273-304); Potassium 3.7 MMOL/L (3.5-5.1); Prealbumin 3.7 MG/DL (20-40)
[2018-01-08 06:50] LABS: Hypochromasia Slight
[2018-01-08] MEDS: ALVIMOPAN 12 MG CAPSULE PO SCH ×2 (09:46→20:30)
[2018-01-08] MEDS: DOCUSATE SODIUM 100 MG CAPSULE PO SCH (09:46)
[2018-01-08] MEDS: ASPIRIN EC 81 MG TABLET PO SCH (09:46)
[2018-01-08] MEDS: ENOXAPARIN 40 MG/0.4 ML SYRINGE SUBCUT SCH ×2 (09:48→10:17)
[2018-01-08] MEDS ORDERED: SODIUM CHLORIDE 0.9% 1,000 ML IV PRN (12:59)
[2018-01-08] MEDS ORDERED: FUROSEMIDE 20 MG/2 ML VIAL IV PRN ×2 (12:59→19:55)
[2018-01-08] MEDS: FAT EMULSION 20% 250 ML IV SCH (15:25)
[2018-01-08] MEDS: MULTIVITAMIN INJ 10 ML, TRACE ELEMENTS (5) 1 ML in AMINO ACIDS/DEXT/LYTES 4.25-5% 2,000 ML IV SCH (16:44)
[2018-01-08] MEDS: VERAPAMIL HCL 100 MG PO SCH (20:27)
[2018-01-08] MEDS: GABAPENTIN 300 MG CAPSULE PO SCH (20:28)
[2018-01-08] MEDS: PANTOPRAZOLE 40 MG VIAL IV SCH (20:29)
[2018-01-09] MEDS: CEFEPIME 2,000 MG in SYRINGE 1 EACH IV SCH ×3 (02:27→17:52)
[2018-01-09] MEDS: INSULIN REGULAR 100 UNIT/ML SUBCUT SCH ×4 (02:29→17:54)
[2018-01-09] MEDS: KETOROLAC 15 MG/1 ML VIAL IV SCH ×4 (02:55→20:38)
[2018-01-09] MEDS: LACTATED RINGERS 1,000 ML IV SCH ×5 (02:55→20:37)
[2018-01-09] MEDS: ASPIRIN EC 81 MG TABLET PO SCH (09:15)
[2018-01-09] MEDS: ALVIMOPAN 12 MG CAPSULE PO SCH ×2 (09:15→20:39)
[2018-01-09] MEDS: DOCUSATE SODIUM 100 MG CAPSULE PO SCH (09:16)
[2018-01-09] MEDS: PANTOPRAZOLE 40 MG VIAL IV SCH ×2 (09:16→20:37)
[2018-01-09] MEDS: MULTIVITAMIN INJ 10 ML, TRACE ELEMENTS (5) 1 ML in AMINO ACIDS/DEXT/LYTES 4.25-5% 2,000 ML IV SCH (16:29)
[2018-01-09] MEDS: FAT EMULSION 20% 250 ML IV SCH (16:29)
[2018-01-09] MEDS: oxyCODONE/ACETAMINOPHEN 5-325 MG TABLET PO PRN (19:43)
[2018-01-09] MEDS: GABAPENTIN 300 MG CAPSULE PO SCH (20:38)
[2018-01-09] MEDS: VERAPAMIL HCL 100 MG PO SCH (20:52)
[2018-01-10] MEDS: INSULIN REGULAR 100 UNIT/ML SUBCUT SCH ×5 (00:46→23:46)
[2018-01-10] MEDS: CEFEPIME 2,000 MG in SYRINGE 1 EACH IV SCH ×3 (02:30→18:01)
[2018-01-10] MEDS: KETOROLAC 15 MG/1 ML VIAL IV SCH ×4 (03:57→21:07)
[2018-01-10] MEDS: LACTATED RINGERS 1,000 ML IV SCH (05:00)
[2018-01-10 05:37] LABS: Basophils # 0.1 10*3/uL (0.0-0.2); Basophils % 0.7 % (0.0-0.8); Eosinophils # 0.6 10*3/uL (0.0-0.87); Eosinophils % 5.8 % (0.00-10.9); Hematocrit 28.4 VOL% (35.7-47.0); Hemoglobin 9.9 GM/DL (12.0-16.0); Immature Granulocytes % 5.8 %; Immature Granulocytes Absolute 0.62 #; Lymphocytes # 1.5 10*3/uL (1.4-4.0); Lymphocytes % 13.8 % (21.3-54.2); Mean Corpuscular HGB Conc 34.9 GM/DL (32-36); Mean Corpuscular Hemoglobin 31 PG (27-34); Mean Corpuscular Volume 87.7 FL (87-102); Mean Platelet Volume 11.5 FL (9.6-12.0); Monocytes # 1.1 10*3/uL (0.11-0.8); Monocytes % 10.7 % (1.7-12.7); Neutrophils # 6.7 10*3/uL (1.4-7.4); Neutrophils % 63.2 % (38.7-73.9); Platelet Count 295 T/CUMM (130-400); Red Blood Count 3.24 MC/CUMM (3.8-5.5); Red Cell Distribution Width 15.6 % (9.3-17.3); White Blood Count 10.6 T/CUMM (4-12)
[2018-01-10 05:54] LABS: Osmolality,Calculated 283.3 MOS/KG (273-304)
[2018-01-10 06:08] LABS: Band Neutrophils 1 % (0-10); Eosinophils 7 % (0-10); Hypochromasia Slight; Lymphocytes 14 % (20-55); Metamyelocytes 1 %; Microcytosis 1+; Segmented Neutrophils 69 % (50-85); Total Cells Counted 100
[2018-01-10] MEDS: ENOXAPARIN 40 MG/0.4 ML SYRINGE SUBCUT SCH (09:21)
[2018-01-10] MEDS: ASPIRIN EC 81 MG TABLET PO SCH (09:21)
[2018-01-10] MEDS: hydrOXYzine HCL 10 MG TABLET PO SCH (09:21)
[2018-01-10] MEDS: PANTOPRAZOLE 40 MG VIAL IV SCH ×2 (09:21→21:03)
[2018-01-10] MEDS: DOCUSATE SODIUM 100 MG CAPSULE PO SCH (09:22)
[2018-01-10] MEDS: MORPHINE 4 MG/1 ML VIAL IV PRN ×2 (12:06→18:02)
[2018-01-10] MEDS: oxyCODONE/ACETAMINOPHEN 5-325 MG TABLET PO PRN ×2 (14:05→21:12)
[2018-01-10] MEDS: FAT EMULSION 20% 250 ML IV SCH (15:54)
[2018-01-10] MEDS: MULTIVITAMIN INJ 10 ML, TRACE ELEMENTS (5) 1 ML in AMINO ACIDS/DEXT/LYTES 4.25-5% 2,000 ML IV SCH (15:55)
[2018-01-10] MEDS: GABAPENTIN 300 MG CAPSULE PO SCH (21:09)
[2018-01-10] MEDS: VERAPAMIL HCL 100 MG PO SCH (21:09)
[2018-01-11] MEDS: KETOROLAC 15 MG/1 ML VIAL IV SCH ×2 (02:15→08:19)
[2018-01-11] MEDS: CEFEPIME 2,000 MG in SYRINGE 1 EACH IV SCH ×3 (02:16→17:50)
[2018-01-11] MEDS: PROMETHAZINE 25 MG TABLET PO PRN (02:16)
[2018-01-11] MEDS: INSULIN REGULAR 100 UNIT/ML SUBCUT SCH ×3 (05:55→17:34)
[2018-01-11] MEDS: PANTOPRAZOLE 40 MG VIAL IV SCH ×2 (08:10→21:42)
[2018-01-11] MEDS: ASPIRIN EC 81 MG TABLET PO SCH (08:10)
[2018-01-11] MEDS: DOCUSATE SODIUM 100 MG CAPSULE PO SCH (08:10)
[2018-01-11] MEDS: ENOXAPARIN 40 MG/0.4 ML SYRINGE SUBCUT SCH (08:11)
[2018-01-11] MEDS: FAT EMULSION 20% 250 ML IV SCH (14:26)
[2018-01-11] MEDS: GABAPENTIN 300 MG CAPSULE PO SCH (21:39)
[2018-01-11] MEDS: oxyCODONE/ACETAMINOPHEN 5-325 MG TABLET PO PRN (21:48)
[2018-01-12] MEDS: oxyCODONE/ACETAMINOPHEN 5-325 MG TABLET PO PRN ×2 (03:02→17:37)
[2018-01-12] MEDS: CEFEPIME 2,000 MG in SYRINGE 1 EACH IV SCH ×3 (03:03→17:44)
[2018-01-12] MEDS: INSULIN REGULAR 100 UNIT/ML SUBCUT SCH ×3 (06:11→13:42)
[2018-01-12 08:59] LABS: Basophils # 0.1 10*3/uL (0.0-0.2); Basophils % 0.5 % (0.0-0.8); Eosinophils # 0.7 10*3/uL (0.0-0.87); Eosinophils % 5.7 % (0.00-10.9); Hematocrit 29.8 VOL% (35.7-47.0); Hemoglobin 9.8 GM/DL (12.0-16.0); Immature Granulocytes % 7.5 %; Immature Granulocytes Absolute 0.85 #; Lymphocytes # 1.7 10*3/uL (1.4-4.0); Lymphocytes % 14.5 % (21.3-54.2); Mean Corpuscular HGB Conc 32.9 GM/DL (32-36); Mean Corpuscular Hemoglobin 30 PG (27-34); Mean Corpuscular Volume 92.5 FL (87-102); Monocytes # 0.9 10*3/uL (0.11-0.8); Neutrophils # 7.2 10*3/uL (1.4-7.4); Neutrophils % 63.8 % (38.7-73.9); Platelet Count 307 T/CUMM (130-400); Red Blood Count 3.22 MC/CUMM (3.8-5.5); Red Cell Distribution Width 15.7 % (9.3-17.3); White Blood Count 11.4 T/CUMM (4-12)
[2018-01-12 09:09] LABS: Anisocytosis 1+; Band Neutrophils 2 % (0-10); Eosinophils 7 % (0-10); Hypochromasia 1+; Lymphocytes 15 % (20-55); Metamyelocytes 2 %; Microcytosis 1+; Myelocytes 1 %; Segmented Neutrophils 68 % (50-85); Total Cells Counted 100
[2018-01-12 09:10] LABS: Platelet Estimate Normal
[2018-01-12 09:23] LABS: Calcium 9.4 MG/DL (8.5-10.1); Osmolality,Calculated 278.7 MOS/KG (273-304)
[2018-01-12] MEDS: DOCUSATE SODIUM 100 MG CAPSULE PO SCH (10:15)
[2018-01-12] MEDS: hydrOXYzine HCL 10 MG TABLET PO SCH (10:15)
[2018-01-12] MEDS: ENOXAPARIN 40 MG/0.4 ML SYRINGE SUBCUT SCH (10:15)
[2018-01-12] MEDS: ASPIRIN EC 81 MG TABLET PO SCH (10:15)
[2018-01-12] MEDS: PANTOPRAZOLE 40 MG VIAL IV SCH ×2 (10:21→20:45)
[2018-01-12] MEDS ORDERED: oxyCODONE/ACETAMINOPHEN 5-325 MG TABLET PO PRN (16:48)
[2018-01-12] MEDS: GABAPENTIN 300 MG CAPSULE PO SCH (20:45)
[2018-01-13] MEDS: oxyCODONE/ACETAMINOPHEN 5-325 MG TABLET PO PRN (02:17)
[2018-01-13] MEDS: CEFEPIME 2,000 MG in SYRINGE 1 EACH IV SCH (02:19)
[2018-01-13] MEDS: ASPIRIN EC 81 MG TABLET PO SCH (09:22)
[2018-01-13] MEDS: DOCUSATE SODIUM 100 MG CAPSULE PO SCH (09:22)
[2018-01-13] MEDS: PANTOPRAZOLE 40 MG VIAL IV SCH (09:22)
[2018-01-13] MEDS: ENOXAPARIN 40 MG/0.4 ML SYRINGE SUBCUT SCH (09:22)
[2018-01-13] MEDS ORDERED: AMOXICILLIN/CLAV 875 MG TABLET PO SCH (10:00)
[2018-01-13 11:17] VITALS: BP 121/68
== END 2018-01-13 15:45 | disposition swing bed (61) | DRG 329 ==
LOC: N.3E
PROVIDERS: ADMIT Internal Medicine Gastroenterology; ATTEND Internal Medicine Gastroenterology

== ENCOUNTER 2019-07-22 05:13 | Inpatient (IN) ==
[2019-07-22] MEDS ORDERED: LEVALBUTEROL 1.25 MG/3 ML NEB RESP TX STA (06:14)
[2019-07-22 06:21] LABS: Basophils % 0.2 % (0.0-0.8); Eosinophils % 0.2 % (0.00-10.9); Hematocrit 42.1 VOL% (35.7-47.0); Hemoglobin 13.8 GM/DL (12.0-16.0); Immature Granulocytes % 0.4 %; Immature Granulocytes Absolute 0.04 #; Lymphocytes # 1.2 10*3/uL (1.4-4.0); Lymphocytes % 12.7 % (21.3-54.2); Mean Corpuscular HGB Conc 32.8 GM/DL (32-36); Mean Corpuscular Volume 96.8 FL (87-102); Mean Platelet Volume 10.5 FL (9.6-12.0); Monocytes % 7.8 % (1.7-12.7); Neutrophils % 78.7 % (38.7-73.9); Platelet Count 174 T/CUMM (130-400); Red Blood Count 4.35 MC/CUMM (3.8-5.5); Red Cell Distribution Width 13.5 % (9.3-17.3); White Blood Count 9.3 T/CUMM (4-12)
[2019-07-22 06:40] LABS: Albumin 3.7 G/DL (3.4-5.0); Calcium 9.4 MG/DL (8.5-10.1); Total Protein 7.5 G/DL (6.4-8.3)
[2019-07-22] MEDS ORDERED: ONDANSETRON 4 MG/2 ML VIAL ONE (07:44)
[2019-07-22] MEDS ORDERED: ONDANSETRON 4 MG/2 ML VIAL IV STA (07:44)
[2019-07-22] MEDS ORDERED: ONDANSETRON 4 MG/2 ML VIAL IV PRN (08:18)
[2019-07-22] MEDS ORDERED: BENZONATATE 100 MG CAPSULE PO PRN (08:23)
[2019-07-22] MEDS ORDERED: ALBUTEROL 2.5 MG/3 ML NEB RESP TX PRN (08:26)
[2019-07-22] MEDS: SODIUM CHLORIDE 0.9% 1,000 ML IV SCH (09:27)
[2019-07-22] MEDS: GABAPENTIN 300 MG CAPSULE PO SCH ×3 (10:27→21:21)
[2019-07-22] MEDS: MELOXICAM 7.5 MG TABLET PO SCH (10:27)
[2019-07-22] MEDS: ASPIRIN EC 81 MG TABLET PO SCH (10:27)
[2019-07-22] MEDS: guaiFENesin/DM ER 600-30 MG TABLET PO SCH ×2 (10:27→21:21)
[2019-07-22] MEDS: DOCUSATE SODIUM 100 MG CAPSULE PO SCH (10:27)
[2019-07-22] MEDS: CYANOCOBALAMIN 500 MCG TABLET PO SCH (10:28)
[2019-07-22] MEDS: PANTOPRAZOLE 40 MG TABLET PO SCH (10:28)
[2019-07-22] MEDS: oxyCODONE/ACETAMINOPHEN 5-325 MG TABLET PO SCH ×3 (11:32→22:29)
[2019-07-22] MEDS: cefTRIAXone 1,000 MG in SYRINGE 1 EACH IV SCH (12:18)
[2019-07-22] MEDS ORDERED: ALBUTEROL/IPRATROPIUM 3 ML NEB RESP TX PRN (13:23)
[2019-07-22] MEDS: ACETYLCYSTEINE 20% 800 MG/4 ML VIAL RESP TX SCH ×2 (13:53→20:00)
[2019-07-22] MEDS: AZITHROMYCIN INJ 500 MG in SODIUM CHLORIDE 0.9% 250 ML IV SCH (14:59)
[2019-07-22] MEDS ORDERED: ENOXAPARIN 30 MG/0.3 ML SYRINGE SUBCUT SCH (21:00)
[2019-07-22] MEDS: VERAPAMIL SR 120 MG TABLET PO SCH (21:21)
[2019-07-23] MEDS: ACETYLCYSTEINE 20% 800 MG/4 ML VIAL RESP TX SCH ×4 (01:00→19:10)
[2019-07-23 05:09] LABS: Basophils % 0.1 % (0.0-0.8); Eosinophils % 0.1 % (0.00-10.9); Hematocrit 35.4 VOL% (35.7-47.0); Hemoglobin 11.6 GM/DL (12.0-16.0); Immature Granulocytes % 0.5 %; Immature Granulocytes Absolute 0.06 #; Lymphocytes # 2.2 10*3/uL (1.4-4.0); Mean Corpuscular HGB Conc 32.8 GM/DL (32-36); Mean Corpuscular Volume 97.5 FL (87-102); Mean Platelet Volume 11.2 FL (9.6-12.0); Monocytes % 6.8 % (1.7-12.7); Neutrophils % 74.5 % (38.7-73.9); Platelet Count 149 T/CUMM (130-400); Red Blood Count 3.63 MC/CUMM (3.8-5.5); Red Cell Distribution Width 13.8 % (9.3-17.3)
[2019-07-23 05:22] LABS: Calcium 8.7 MG/DL (8.5-10.1); Osmolality,Calculated 278.5 MOS/KG (273-304)
[2019-07-23] MEDS: SODIUM CHLORIDE 0.9% 1,000 ML IV SCH (05:41)
[2019-07-23] MEDS: CYANOCOBALAMIN 500 MCG TABLET PO SCH (08:20)
[2019-07-23] MEDS: PANTOPRAZOLE 40 MG TABLET PO SCH (08:20)
[2019-07-23] MEDS: GABAPENTIN 300 MG CAPSULE PO SCH ×3 (08:20→21:20)
[2019-07-23] MEDS: ASPIRIN EC 81 MG TABLET PO SCH (08:20)
[2019-07-23] MEDS: DOCUSATE SODIUM 100 MG CAPSULE PO SCH (08:20)
[2019-07-23] MEDS: MELOXICAM 7.5 MG TABLET PO SCH (08:20)
[2019-07-23] MEDS: guaiFENesin/DM ER 600-30 MG TABLET PO SCH ×2 (08:20→21:20)
[2019-07-23] MEDS: oxyCODONE/ACETAMINOPHEN 5-325 MG TABLET PO SCH ×3 (08:21→21:19)
[2019-07-23] MEDS: cefTRIAXone 1,000 MG in SYRINGE 1 EACH IV SCH (11:57)
[2019-07-23] MEDS: AZITHROMYCIN INJ 500 MG in SODIUM CHLORIDE 0.9% 250 ML IV SCH (14:48)
[2019-07-23] MEDS: VERAPAMIL SR 120 MG TABLET PO SCH (21:20)
[2019-07-23] MEDS: ENOXAPARIN 40 MG/0.4 ML SYRINGE SUBCUT SCH (21:20)
[2019-07-24] MEDS: ACETYLCYSTEINE 20% 800 MG/4 ML VIAL RESP TX SCH ×4 (00:45→19:49)
[2019-07-24 05:26] LABS: Basophils % 0.2 % (0.0-0.8); Eosinophils # 0.2 10*3/uL (0.0-0.87); Eosinophils % 1.4 % (0.00-10.9); Hematocrit 34.1 VOL% (35.7-47.0); Hemoglobin 11.2 GM/DL (12.0-16.0); Immature Granulocytes Absolute 0.12 #; Lymphocytes # 1.8 10*3/uL (1.4-4.0); Lymphocytes % 15.2 % (21.3-54.2); Mean Corpuscular HGB Conc 32.8 GM/DL (32-36); Mean Corpuscular Volume 98.6 FL (87-102); Mean Platelet Volume 10.8 FL (9.6-12.0); Neutrophils % 75.2 % (38.7-73.9); Platelet Count 134 T/CUMM (130-400); Red Blood Count 3.46 MC/CUMM (3.8-5.5); White Blood Count 12.1 T/CUMM (4-12)
[2019-07-24 05:40] LABS: Calcium 9.5 MG/DL (8.5-10.1); Osmolality,Calculated 284.1 MOS/KG (273-304)
[2019-07-24] MEDS: oxyCODONE/ACETAMINOPHEN 5-325 MG TABLET PO SCH ×3 (09:01→21:59)
[2019-07-24] MEDS: CYANOCOBALAMIN 500 MCG TABLET PO SCH (09:05)
[2019-07-24] MEDS: DOCUSATE SODIUM 100 MG CAPSULE PO SCH (09:05)
[2019-07-24] MEDS: PANTOPRAZOLE 40 MG TABLET PO SCH (09:05)
[2019-07-24] MEDS: MELOXICAM 7.5 MG TABLET PO SCH (09:05)
[2019-07-24] MEDS: GABAPENTIN 300 MG CAPSULE PO SCH ×3 (09:06→21:59)
[2019-07-24] MEDS: ASPIRIN EC 81 MG TABLET PO SCH (09:06)
[2019-07-24] MEDS: guaiFENesin/DM ER 600-30 MG TABLET PO SCH ×2 (09:06→21:59)
[2019-07-24] MEDS: cefTRIAXone 1,000 MG in SYRINGE 1 EACH IV SCH (12:20)
[2019-07-24] MEDS: methylPREDNISolone SOD SUC 40 MG/1 ML VIAL IV SCH (16:35)
[2019-07-24] MEDS: AZITHROMYCIN INJ 500 MG in SODIUM CHLORIDE 0.9% 250 ML IV SCH (16:38)
[2019-07-24] MEDS: ENOXAPARIN 40 MG/0.4 ML SYRINGE SUBCUT SCH (21:58)
[2019-07-24] MEDS: VERAPAMIL SR 120 MG TABLET PO SCH (21:59)
[2019-07-24] MEDS: MYLANTA/LIDO VISC/DIPH 300 ML BOTTLE SWISH/SPIT SCH (22:00)
[2019-07-25] MEDS: ACETYLCYSTEINE 20% 800 MG/4 ML VIAL RESP TX SCH ×3 (00:07→12:27)
[2019-07-25] MEDS: MYLANTA/LIDO VISC/DIPH 300 ML BOTTLE SWISH/SPIT SCH ×4 (01:57→12:02)
[2019-07-25] MEDS: methylPREDNISolone SOD SUC 40 MG/1 ML VIAL IV SCH ×2 (01:58→17:02)
[2019-07-25 05:44] LABS: Basophils % 0.1 % (0.0-0.8); Hematocrit 34.2 VOL% (35.7-47.0); Hemoglobin 11.3 GM/DL (12.0-16.0); Immature Granulocytes % 1.9 %; Immature Granulocytes Absolute 0.15 #; Lymphocytes # 0.8 10*3/uL (1.4-4.0); Lymphocytes % 9.4 % (21.3-54.2); Mean Corpuscular Volume 96.9 FL (87-102); Mean Platelet Volume 11.2 FL (9.6-12.0); Monocytes % 2.1 % (1.7-12.7); Neutrophils % 86.5 % (38.7-73.9); Platelet Count 148 T/CUMM (130-400); Red Blood Count 3.53 MC/CUMM (3.8-5.5); Red Cell Distribution Width 13.5 % (9.3-17.3)
[2019-07-25] MEDS: GABAPENTIN 300 MG CAPSULE PO SCH (09:52)
[2019-07-25] MEDS: ASPIRIN EC 81 MG TABLET PO SCH (09:52)
[2019-07-25] MEDS: guaiFENesin/DM ER 600-30 MG TABLET PO SCH (09:53)
[2019-07-25] MEDS: oxyCODONE/ACETAMINOPHEN 5-325 MG TABLET PO SCH (09:53)
[2019-07-25] MEDS: MELOXICAM 7.5 MG TABLET PO SCH (09:54)
[2019-07-25] MEDS: DOCUSATE SODIUM 100 MG CAPSULE PO SCH (09:54)
[2019-07-25] MEDS: CYANOCOBALAMIN 500 MCG TABLET PO SCH (09:55)
[2019-07-25] MEDS: PANTOPRAZOLE 40 MG TABLET PO SCH (09:56)
[2019-07-25 11:49] VITALS: BP 122/78
[2019-07-25] MEDS ORDERED: FLUTICASONE 50 MCG NASAL SPRAY 16 GM BOTTLE BOTH NARES SCH (13:00)
[2019-07-25] MEDS: cefTRIAXone 1,000 MG in SYRINGE 1 EACH IV SCH (17:02)
[2019-07-25] MEDS: AZITHROMYCIN INJ 500 MG in SODIUM CHLORIDE 0.9% 250 ML IV SCH (17:02)
== END 2019-07-25 16:27 | disposition home or self-care (01) | DRG 202 ==
LOC: N.EDINP 05:13 → N.ED 05:13 → N.5E 09:53
PROVIDERS: ADMIT Internal Medicine; ATTEND Internal Medicine